=== PATIENT | female | born 1995 | race Caucasian/White ===

== ENCOUNTER 2017-09-19 13:07 | Emergency (ER) | payer OTHER ==
[~2017-09-19] VITALS: Ht 160 cm; Wt 52.2 kg
[2017-09-19] MEDS ORDERED: LORazepam 2MG/ML-1ML VIAL IV ONE (14:15)
[2017-09-19 14:30] LABS: Basophils # (auto) 0.1 uL; Eosinophils # (auto) 0.1 uL; Eosinophils % (auto) 1.6 % (0.0-7.0); Hematocrit 47.4 % (36.0-46.0); Hemoglobin 15.9 g/dL (12.2-16.2); Lymphocytes # (auto) 1.8 uL; Lymphocytes % (auto) 25.2 % (10.0-50.0); Mean Corpuscular Hemoglobin 29.9 pg (28.0-32.0); Mean Corpuscular Hgb Conc. 33.5 g/dL (32.0-36.0); Mean Corpuscular Volume 89.3 fL (80.0-100.0); Monocytes # (auto) 0.5 uL; Monocytes % (auto) 7.5 % (0.0-12.0); Neutrophils # (auto) 4.5 uL; Neutrophils % (auto) 64.7 % (37.0-80.0); Nucleated Red Blood Cells % 0.1 %; Platelet Count (auto) 269 10^3/uL (140-450); Red Blood Cells 5.31 10^6/uL (4.0-5.20); Red Cell Distribution Width 12.7 % (11.8-14.3)
[2017-09-19] MEDS ORDERED: ASPirin 81 mg TAB PO ONE (14:30)
[2017-09-19 14:38] LABS: Urine Bacteria NONE SEEN /hpf (None Seen); Urine Blood Negative /uL (Negative); Urine Specific Gravity 1.009 (1.001-1.035); Urine WBC 4 /hpf (0 - 5)
[2017-09-19 14:43] LABS: Alanine Aminotransferase 32 U/L (13-56); Albumin 3.9 g/dL (3.4-5.0); Alkaline Phosphatase 67 U/L (45-117); Anion Gap 10 (5-15); Aspartate Aminotransferase 23 U/L (15-37); BUN/Creatinine Ratio 10.3; Bilirubin, Total 0.5 mg/dL (0.2-1.0); Blood Urea Nitrogen 10 mg/dL (7-18); Carbon Dioxide 24 mmol/L (21-32); Chloride 104 mmol/L (98-107); GFR African American 91 mL/min; GFR Non-African American 75 mL/min; Glucose 80 mg/dL (74-106); Potassium 3.5 mmol/L (3.5-5.1); Sodium 138 mmol/L (136-145); Total Protein 7.8 g/dL (6.4-8.2)
[2017-09-19 18:27] VITALS: BP 124/81
== END 2017-09-19 18:39 | disposition short-term general hospital (02) ==
LOC: ER 13:07
DX: I24.9 Acute ischemic heart disease, unspecified (principal); I45.4 Nonspecific intraventricular block
CPT/HCPCS: 36415; 71046; 80053; 81001; 81025; 84484; 85025; 93005; 93306